=== PATIENT | male | born 1995 | race Caucasian/White ===

== ENCOUNTER 2017-09-20 08:21 | Day surgery (SDC) | payer BC, OTHER, SELFPAY ==
[~2017-09-20 08:21] MED LIST: Lactated Ringers 1,000 ML IV SCH; Sodium Chloride 0.9% 10 ML Syringe FLUSH PRN
[2017-09-20] MEDS ORDERED: ceFAZolin 1 GM Vial IV ONE (08:41)
[2017-09-20] MEDS ORDERED: ceFAZolin 1,000 MG VIAL IV ONE (09:30)
[2017-09-20] MEDS ORDERED: ceFAZolin 1 GM in Sodium Chloride 0.9% 50 ML IV ONE (09:30)
[2017-09-20] MEDS ORDERED: Ketorolac 30 MG/ML SDV IVPUSH ONE (10:00)
[2017-09-20] MEDS ORDERED: fentaNYL 100 MCG/2 ML SDV IV ONE (10:00)
[2017-09-20] MEDS ORDERED: Glycopyrrolate 0.2 MG/ML 2 ML SDV IV ONE (10:00)
[2017-09-20] MEDS ORDERED: Ondansetron 4 MG/2 ML SDV IVPUSH ONE (10:00)
[2017-09-20] MEDS ORDERED: Propofol 200 MG/20 ML SDV IV ONE (10:00)
[2017-09-20] MEDS ORDERED: HYDROmorphone 2 MG/ML SDV IV ONE (10:00)
[2017-09-20] MEDS ORDERED: Rocuronium 100 MG/10 ML MDV IV ONE (10:00)
[2017-09-20] MEDS ORDERED: Midazolam 1 MG/ML 2 ML SDV IV ONE (10:00)
[2017-09-20] MEDS ORDERED: Furosemide 40 MG/4 ML VIAL IV ONE (10:00)
[2017-09-20] MEDS ORDERED: Lactated Ringers 1,000 ML IV ONE (10:00)
[2017-09-20] MEDS ORDERED: Bupivacaine 0.5%/EPINEPHrine 1:200,000 50 ML MDV ONE ×2 (10:19)
--- NOTE | 2017-09-20 12:56 | PCM.OPNOTE ---
- General Post-Op/Procedure Note Date of Surgery/Procedure: 09/20/17 Operative Procedure(s): Laproscopic Cholecystectomy Findings: Acute and chronically inflamed gallbladder with stones Pre Op Diagnosis: Symptomatic Cholelithiasis Post-Op Diagnosis: Chronic cholecystitis with stones Anesthesia Technique: General ET Tube Primary Surgeon: Casey Moody Pathology: Gallbladder Output, Urine Amount: 0 EBL in mLs: 250 Complications: None Condition: Good
[2017-09-20] MEDS ORDERED: Furosemide 20 MG/2 ML VIAL IVPUSH ONE (15:53)
[2017-09-20] MEDS ORDERED: Morphine 2 MG/ML Syringe IVPUSH PRN (17:45)
[2017-09-20] MEDS ORDERED: Acetaminophen/HYDROcodone 325-5 MG Tab PO PRN (17:45)
[2017-09-20] MEDS ORDERED: Acetaminophen/HYDROcodone 325-10 MG Tab PO SCH (17:45)
[2017-09-21] MEDS ORDERED: Ondansetron 4 MG/2 ML SDV IVPUSH PRN (04:26)
[2017-09-21] MEDS ORDERED: Acetaminophen/HYDROcodone 325-5 MG Tab PO PRN (07:45)
--- NOTE | 2017-09-21 08:00 | PCM.SURGPN ---
- General Info Date of Service: 09/21/17 Date of Surgery/Procedure: 09/20/17 POD#: 1 Post-Op Diagnosis: Chronic Cholecystitis with Cholelithiasis. Post op Pulmonary edema - Review of Systems General: Denies: Fever Pulmonary: Denies: Shortness of Breath Gastrointestinal: Reports: Abdominal Pain (moderate). Denies: Nausea, Vomiting Genitourinary: Reports: No Symptoms - Patient Data Vitals - Most Recent: Last Vital Signs Temp 98.1 F 09/20/17 23:37 Pulse 71 09/20/17 23:37 Resp 18 09/20/17 23:37 BP 117/66 09/20/17 23:37 Pulse Ox 97 09/20/17 23:37 Weight - Most Recent: 116 lb I&O - Last 24 Hours: Intake & Output 09/20/17 09/21/17 09/21/17 22:59 06:59 14:59 Output Total 500 Balance -500 Lab Results Last 24 Hrs: Laboratory Results - last 24 hr 09/21/17 09/21/17 Range/Units 05:55 05:55 Hgb 12.6 (11.5-15.5) g/dL Hct 36.8 (30.0-51.3) % Sodium 139 (135-145) mmol/L Potassium 3.7 (3.5-5.3) mmol/L Chloride 101 (100-110) mmol/L Carbon Dioxide 34 H (21-32) mmol/L BUN 9 (7-18) mg/dL Creatinine 1.0 (0.70-1.30) mg/dL Est Cr Clr Drug Dosing 87.69 mL/min Estimated GFR (MDRD) > 60 (>60) BUN/Creatinine Ratio 9.0 (9-20) Glucose 87 (80-116) mg/dL Calcium 8.4 L (8.6-10.2) mg/dL Total Bilirubin 1.1 (0.1-1.3) mg/dL AST 162 H* (5-25) IU/L ALT 357 H* (12-36) U/L Alkaline Phosphatase 203 H (56-112) IU/L Total Protein 6.2 (6.0-8.0) g/dL Albumin 3.0 L (3.5-5.2) g/dL Globulin 3.2 g/dL Albumin/Globulin Ratio 0.9 Amylase 49 (25-115) U/L Med Orders - Current: Current Medications Hydrocodone Bitart/Acetaminophen (Horseheads 325-5 Mg) 1 tab PO Q4H PRN PRN Reason: Pain Last Admin: 09/21/17 07:45 Dose: 1 tab Hydrocodone Bitart/Acetaminophen ([place]heads 325-5 Mg) 2 tab PO Q4H PRN PRN Reason: Pain Morphine Sulfate (Morphine) 2 mg IVPUSH Q1H PRN PRN Reason: Pain Ondansetron HCl (Zofran) 4 mg IVPUSH Q6H PRN PRN Reason: Nausea/Vomiting Sodium Chloride (Saline Flush) 10 ml FLUSH ASDIRECTED PRN PRN Reason: Keep Vein Open Discontinued Medications Bupivacaine HCl/Epinephrine Bitart (Marcaine 0.5%/Epinephrine 1:200,000) 20 ml .XX .STK-MED ONE Stop: 09/20/17 10:20 Last Admin: 09/20/17 10:19 Dose: 20 ml Cefazolin Sodium (Ancef) 1 gm IV ONETIME ONE Stop: 09/20/17 08:42 Last Admin: 09/20/17 09:55 Dose: 1 gm Lactated Ringer's (Ringers, Lactated) 1,000 mls @ 125 mls/hr IV ASDIRECTED LASHON Last Admin: 09/20/17 09:13 Dose: 125 mls/hr - Exam Wound/Incisions: Healing Well, Drainage (minimal). No: Erythema General: Alert, Oriented Lungs: Normal Respiratory Effort GI/Abdominal Exam: Soft, No Distention Extremities: Non-Tender, No Pedal Edema - Problem List Review Problem List Initiated/Reviewed/Updated: Yes - My Orders Last 24 Hours: Active Orders 24 hr Category Date Time Status Patient Status [ADT] Routine ADT 09/20/17 08:15 Ordered Oxygen Therapy Adult [Oxygen Therapy] [RC] ASDIRECTED Care 09/20/17 17:45 Active RT Incentive Spirometry [RC] ASDIRECTED Care 09/20/17 08:15 Active Ready for Discharge [RC] PER UNIT ROUTINE Care 09/20/17 13:00 Active Low Fat Diet [DIET] Diet 09/21/17 Breakfast Ordered Chest 2V [CR] Routine Exams 09/20/17 18:00 Taken Acetaminophen/HYDROcodone [Horseheads 325-5 MG] Med 09/20/17 17:45 Active 1 tab PO Q4H PRN Acetaminophen/HYDROcodone [[place]orseheads 325-5 MG] Med 09/21/17 07:45 Active 2 tab PO Q4H PRN Morphine Med 09/20/17 17:45 Active 2 mg IVPUSH Q1H PRN Ondansetron [Zofran] Med 09/21/17 04:26 Active 4 mg IVPUSH Q6H PRN Sodium Chloride 0.9% [Saline Flush] Med 09/20/17 08:15 Active 10 ml FLUSH ASDIRECTED PRN Convert IV to Saline Lock [OM.PC] Routine Oth 09/21/17 04:16 Ordered Peripheral IV Insertion Adult [OM.PC] Routine Oth 09/20/17 08:15 Ordered Sequential Compression Device [OM.PC] Routine Oth 09/20/17 08:15 Ordered Medication Orders Hydrocodone Bitart/Acetaminophen ([place] 325-5 Mg) 1 tab PO Q4H PRN PRN Reason: Pain Last Admin: 09/21/17 07:45 Dose: 1 tab Hydrocodone Bitart/Acetaminophen ([place]heads 325-5 Mg) 2 tab PO Q4H PRN PRN Reason: Pain Morphine Sulfate (Morphine) 2 mg IVPUSH Q1H PRN PRN Reason: Pain Ondansetron HCl (Zofran) 4 mg IVPUSH Q6H PRN PRN Reason: Nausea/Vomiting Sodium Chloride (Saline Flush) 10 ml FLUSH ASDIRECTED PRN PRN Reason: Keep Vein Open - Assessment Assessment (Free Text/Narrative):: Post op day # 1 Cholecystectomy Respiratory status almost back to normal Post op labs still show elevated AST and ALT but Bili normal and all improved from pre-op - Plan Plan (Free Text/Narrative):: Discharge f/u in 3 days Rx Hydrocodone for pain Low fat diet no heavy lifting for 2 weeks
--- NOTE | 2017-09-21 11:13 | CR ---
INDICATION: Post cholecystectomy, chest pain and short of breath. CHEST: AP and lateral views of the chest were obtained sitting and revealed the heart and mediastinum to be unremarkable. A minimal dextroconcave scoliosis of the lower middle thoracic spine is noted. Central infiltration is noted of moderately extensive degree, along with thickening of the minor fissure. Findings may be on the basis of aspiration pneumonia in a postsurgical patient. This infiltration could also be on the basis of fluid overload with pulmonary edema. This should be correlated clinically. If old films are available for comparison, they may be helpful. Free air is noted under the hemidiaphragm leaves, compatible with recent cholecystectomy. No gross consolidating pneumonia or significant sized pleural effusion could be identified. IMPRESSION: 1. Bilateral patchy alveolar and interstitial infiltration with pleuritis on the right. Findings may be on the basis of aspiration pneumonia but should be correlated clinically as acute pulmonary edema could appear in an identical manner. 2. Free air under the hemidiaphragm leaves, compatible with cholecystectomy. 3. Mild dextroconcave scoliosis. Information that the report was available was called to [facility] for Dr. Casey Moody at approximately 1030 hours on 09/21/2017. MALIA
[2017-09-21] MEDS ORDERED: Morphine 4 MG/ML Syringe IVPUSH PRN (11:31)
--- NOTE | 2017-09-21 12:42 | OR ---
DATE OF OPERATION: 09/20/2017 SURGEON: Casey Moody MD PREOPERATIVE DIAGNOSIS: Symptomatic cholelithiasis. POSTOPERATIVE DIAGNOSES: Chronic cholecystitis with cholelithiasis. OPERATION PERFORMED: Laparoscopic cholecystectomy. INDICATIONS FOR SURGERY: This 22-year-old male has been having symptoms of postprandial upper abdominal and back pain. Workup has identified cholelithiasis, which was felt to be the source of his symptoms, and he comes for cholecystectomy. FINDINGS: The gallbladder showed a severe chronic inflammation, with adhesions to the majority of its surface and dense adherence to the liver. The adhesions obscured the detail of the gallbladder, making dissection very difficult. The adjacent liver and the other intra-abdominal organs appeared normal as viewed laparoscopically. PROCEDURE IN DETAIL: The patient was taken to the operating room. He was given general endotracheal anesthesia, and the abdomen was sterilely prepped and draped. An infraumbilical stab wound incision was made. Through this, a Veress needle was inserted, and pneumoperitoneum via this needle to a pressure of 15 mmHg was achieved with carbon dioxide. The Veress needle was then replaced with a 12-mm trocar, into which the 5-mm variable-angled laparoscopic camera was inserted. Under direct visualization, a 5-mm trocar was placed in the subxiphoid midline, and two more were placed in the right abdomen. All trocar sites were infiltrated with Marcaine prior to incision. Intra-abdominal inspection was carried out, and attention was turned to the gallbladder. It was secured with grasping forceps, and careful dissection was used to free the adhesions from the undersurface down to the lower part of the gallbladder. Prolonged tedious dissection was carried out around the gallbladder, and also freeing the duodenum from the lower portion of the gallbladder and trying to identify the anatomy. As the dissection continued, the anatomy was at first very difficult to clearly define. As this dissection proceeded, the common bile duct was clearly identified, and dissection then was able to be focused around the neck of the gallbladder, and eventually, the cystic duct was isolated. There were several arterial branches coursing to the gallbladder. These were controlled with clips as they were encountered. With the dissection continuing carefully, the common bile duct was clearly identified, and then the gallbladder and entire length of the cystic duct, which was quite short was noted. Eventually, the cystic duct was able to be isolated enough so that it could be doubly clipped right at its junction with the gallbladder, preserving the lower portion of the cystic duct to assure that there would be no injury or compromise to the common bile duct. The cystic duct was divided above these clamps right at the gallbladder cystic duct junction. The gallbladder was then dissected free from the undersurface of the liver using the cautery device, and once completely freed, it was placed into an Endo retrieval bag and removed. Re-inspection of the gallbladder bed was performed. Full hemostasis was assured with cautery, and copious irrigation was then used to irrigate the operative region. A piece of Surgicel was placed into the gallbladder bed to further assure good hemostasis, and with no sign of bleeding or any other complication, the trocars were removed under direct visualization and the pneumoperitoneum was evacuated. WOUND CLOSURE: The fascia of the umbilical trocar site was closed with a figure- of-eight 0 Vicryl suture. Wounds were irrigated with Betadine and saline solution. Skin incisions were approximated with interrupted 4-0 Vicryl in a subcuticular stitch, Steri-Strips, and Benzoin. Antibiotic ointment and sterile dressings were placed. CONDITION: The patient was awakened, extubated, and taken from the operating room in satisfactory condition. ESTIMATED BLOOD LOSS: 250 mL. COMPLICATIONS: None. PROGNOSIS: Good. /[id number] NYDIA/EMILY
--- NOTE | 2017-09-21 15:03 | PREOP ---
ADMISSION DATE: 09/20/2017 PREOPERATIVE NOTE This 22-year-old male presented for cholecystectomy. He has been stable over the last two days since he was seen in the outpatient clinic. Currently, he is not having much abdominal pain, but is having more back pain. I again reviewed the proposed cholecystectomy with the patient, discussing the expected course of the operation and the postoperative expectations. He appears to understand and agrees to proceed. /[id number] NYDIA/EMILY
--- NOTE | 2017-09-21 15:03 | PN ---
DATE SEEN: 09/20/2017 POSTOP NOTE HISTORY OF PRESENT ILLNESS: This 22-year-old male underwent a laparoscopic cholecystectomy earlier today. The gallbladder was severely inflamed and the dissection difficult, causing the procedure to be longer than normal. Postoperatively, he has exhibited decreased O2 saturation and physical findings of rales in both lungs. He has required 4 L of oxygen to maintain O2 saturation greater than 90%. He is not having any pain with breathing, and currently, he denies any shortness of breath. He is having a moderate amount, but not an unusually excessive amount, of postop abdominal pain. He has no cough, but there has been production of some bloody sputum intermittently since the surgery. It should be noted that the patient did have a difficult intubation because of anatomy, and it has also been recorded that he received approximately 3 L of IV fluid during his surgical procedure. The patient has received 2 doses of 20 mg of Lasix and has been voiding in large amounts, especially over the last 1 to 2 hours. PHYSICAL EXAMINATION: VITAL SIGNS: Currently, his blood pressure and pulse are stable. His O2 saturation is 97% on 4 L by nasal cannula. GENERAL: The patient is resting comfortably and exhibits no shortness of breath. HEART: Regular. There is no murmur. LUNGS: Show faint rales bilaterally. ABDOMEN: Soft. His dressings are dry. RADIOGRAPHIC DATA: A chest x-ray was obtained. This appears to show a minimal amount of pulmonary edema, but no other unexpected abnormality is noted (There is free air underneath the diaphragm, consistent with his recent laparoscopic procedure). IMPRESSION: Low O2 saturation postoperatively secondary to fluid overload. PLAN: The patient will be admitted overnight for observation. Saturation is to be monitored. He will receive supplemental O2 as needed. He is encouraged to use incentive spirometer and ambulate. Laboratory studies will be drawn in the morning. If the patient continues to improve as expected, anticipate discharge tomorrow. /[id number] NYDIA/EMILY
== END 2017-09-21 09:45 | disposition home or self-care (01) ==
LOC: FB.SDS 08:21 → FB.MS 15:30 → FB.SDS 09-21 09:45
PROVIDERS: ATTEND Surgery
DX: K80.00 Calculus of gallbladder with acute cholecystitis without obstruction (principal); F90.9 Attention-deficit hyperactivity disorder, unspecified type; Z90.89 Acquired absence of other organs
CPT/HCPCS: 36415; 71046; 80053; 82150; 85014; 85018; 88304; A9270-GY; J0690; J1170; J1885; J1940; J2250; J2405; J2704; J3010; J3490; J7050; J7120

== ENCOUNTER 2022-06-12 09:48 | Emergency (ER) | payer OTHER, BC ==
[2022-06-12] MEDS ORDERED: Ibuprofen 800 MG Tab PO ONE (10:05)
== END 2022-06-12 12:24 | disposition home or self-care (01) ==
LOC: FB.ED 09:48
DX: S49.91XA Unspecified injury of right shoulder and upper arm, initial encounter (principal); X50.0XXA Overexertion from strenuous movement or load, initial encounter; Y92.89 Other specified places as the place of occurrence of the external cause; Y99.0 Civilian activity done for income or pay
CPT/HCPCS: 73030-RT; 99282; 99283; A9270-GY